=== PATIENT | male | born 1995 | race Caucasian/White ===

== ENCOUNTER 2018-11-23 19:51 | Observation (INO) | payer OTHER ==
[2018-11-23] MEDS ORDERED: Sodium Chloride 0.9% 1,000 ML IV ONE (20:07)
[2018-11-23] MEDS ORDERED: Sodium Chloride 0.9% 2.5 ML Syringe FLUSH PRN ×2 (20:07→22:06)
[2018-11-23] MEDS ORDERED: Sodium Chloride 0.9% 10 ML Syringe FLUSH PRN ×2 (20:07→22:06)
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
[2018-11-23 20:33] LABS: CHLORIDE,CL 101 mmol/L (98-107); SODIUM,NA 137 mmol/L (136-148)
--- NOTE | 2018-11-23 20:54 | CT ---
HISTORY: Trauma. TECHNIQUE: Noncontrast head CT. COMPARISON: No prior. FINDINGS: Present within the right frontal lobe is an approximately 8 x 3 mm subtle higher attenuation lesion as seen on image #32 of series 201. This may be within the white matter or at the white matter-saab matter junction and most likely a small intraparenchymal bleed. No other site of possible intracranial hemorrhage is seen. There is no mass effect. No midline shift. No hydrocephalus. No extra-axial collection or hematoma. The mastoid air cells are clear. Middle ear cavities are clear. Paranasal sinuses are clear. There is no acute skull fracture. IMPRESSION: 1. Subtle 8 x 3 mm hyperdense lesion involving the right frontal lobemost likely reflecting a small intraparenchymal bleed. No mass effect. 2. No other site of potential intracranial hemorrhage. 3. No acute skull fracture. 4. Findings discussed with Dr. Dixon on 11/23/2018 at 20:52 hours. Dictated by Allan Guillermo MD @ 11/23/2018 8:51:31 PM Please note that all CT scans at this facility use dose modulation, iterative reconstruction, and/or weight-based dosing when appropriate to reduce radiation dose to as low as reasonably achievable. Dictated by: Allan Guillermo MD @ 11/23/2018 20:53:08 (Electronically Signed)
--- NOTE | 2018-11-23 20:56 | CT ---
HISTORY: Trauma. TECHNIQUE: Noncontrast CT cervical spine. COMPARISON: No prior. FINDINGS: There is no acute cervical fracture or cervical malalignment. Disc height and vertebral body height are maintained. No abnormal prevertebral soft tissue swelling. No central canal or neural foraminal stenosis. IMPRESSION: No acute cervical fracture or cervical malalignment. Dictated by Allan Guillermo MD @ 11/23/2018 8:54:49 PM Please note that all CT scans at this facility use dose modulation, iterative reconstruction, and/or weight-based dosing when appropriate to reduce radiation dose to as low as reasonably achievable. Dictated by: Allan Guillermo MD @ 11/23/2018 20:54:56 (Electronically Signed)
[2018-11-23] MEDS ORDERED: Morphine 2 MG/ML Syringe IVPUSH ONE (21:02)
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
[2018-11-23] MEDS ORDERED: Ondansetron 4 MG/2 ML SDV IVPUSH PRN (22:06)
[2018-11-23] MEDS ORDERED: Acetaminophen/HYDROcodone 325-5 MG Tab PO PRN (22:06)
[2018-11-23] MEDS ORDERED: diphenhydrAMINE 50 MG/ML SDV IVPUSH PRN (22:06)
[2018-11-23] MEDS ORDERED: Sodium Chloride 0.9% 10 ML SDV IV PRN (22:06)
[2018-11-23] MEDS: Sodium Chloride 0.9% 1,000 ML IV SCH (22:30)
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
[2018-11-24] MEDS: Sodium Chloride 0.9% 1,000 ML IV SCH (06:15)
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
== END 2018-11-24 08:20 | disposition home or self-care (01) ==
LOC: MW.ED 19:51 → MW.MS 20:52
PROVIDERS: ADMIT Surgery; ATTEND Surgery
DX: S06.0X1A Concussion with loss of consciousness of 30 minutes or less, initial encounter (principal); I61.9 Nontraumatic intracerebral hemorrhage, unspecified; S40.212A Abrasion of left shoulder, initial encounter; Z86.39 Personal history of other endocrine, nutritional and metabolic disease
CPT/HCPCS: 36415; 70450; 71045; 72100; 72125; 72170; 73090; 73100; 80053; 81001; 85025; 85610; 93005; J2270; J7040; 96361; 96374; 99285; 99285-25